=== PATIENT | female | born 1950 | race Caucasian/White ===

== ENCOUNTER 2017-03-14 02:51 | Inpatient (IN) ==
--- NOTE | 2017-02-28 12:56 | EKG Report ---
Test Performed on : 02/28/2017 12:39:31 PM Test Reason : PAT Blood Pressure : / mmHG Vent. Rate : 073 BPM Atrial Rate : 073 BPM P-R Int : 168 ms QRS Dur : 076 ms QT Int : 404 ms P-R-T Axes : 049 018 043 degrees QTc Int : 445 ms Normal sinus rhythm. Possible Left atrial enlargement Low voltage QRS Borderline ECG When compared with ECG of 12-MAR-2013 10:17, No significant change was found Confirmed by Jeremias Bertrand MD ([id number]) on 03/01/2017 7:03:21 AM
[2017-02-28 13:08] LABS: MANUAL DIFF NEEDED? NO
[2017-02-28 13:08] LABS: URINE MICRO REVIEW NEEDED? NO; URINE SOURCE CLEAN CATCH
[2017-02-28 13:20] LABS: BASO% 0.4 % (0.0-0.8); EOS# 0.12 X1000 (0.0-0.7); EOS% 1.6 % (0.0-10.0); HEMATOCRIT 42.1 % (37.0-47.0); IMM GRAN# 0.02 X1000 (0.0-0.04); IMM GRAN% 0.3 % (0.0-0.5); LYMPH# 2.23 X1000 (1.2-3.4); MCH 30.6 PG (27-31); MCHC 33.3 g/dL (33-37); MCV 91.9 FL (81-99); MONO# 0.49 X1000 (0.11-0.59); MONO% 6.6 % (1.7-9.3); MPV 10.7 FL (7.4-10.4); NEUT% 61.1 % (42.2-75.2); PLT 268 X1000 (130-400); RBC 4.58 XMIL (4.2-5.4)
[2017-02-28 13:31] LABS: INR 1.06; PROTIME 11.2 Seconds (9.2-11.7); PTT 26.4 Seconds (22.0-36.0)
[2017-02-28 13:39] LABS: BILIRUBIN URINE NEGATIVE (NEGATIVE); BLOOD URINE NEGATIVE (NEGATIVE); COLOR STRAW; GLUCOSE URINE NEGATIVE (NEGATIVE); LEUKOCYTES URINE NEGATIVE (NEGATIVE); NITRITE URINE NEGATIVE (NEGATIVE); PROTEIN URINE NEGATIVE (NEGATIVE); SP GRAVITY URINE 1.008; TURBIDITY URINE CLEAR (CLEAR); UROBILINOGEN URINE NORMAL (NORMAL)
[2017-02-28 13:43] LABS: UR EPITHELIAL CELLS <10 /HPF (<10); URINE BACTERIA NEGATIVE /HPF; URINE RBC <10 /HPF (<10); URINE WBC <10 /HPF (<10)
[2017-02-28 14:00] LABS: AGAP 13; BUN 16 mg/dL (8-22); CALCIUM 9.2 mg/dL (8.8-10.2); CHLORIDE 101 mmol/L (98-107); COSMO 284; POTASSIUM 3.8 mmol/L (3.5-5.1); SODIUM 142 mmol/L (136-145); TCO2 28 mmol/L (25-35)
[2017-03-14] MEDS ORDERED: LR 1,000 ML ONE ×2 (09:05→13:54)
[2017-03-14] MEDS ORDERED: NAROPIN 0.5% ONE (09:05)
[2017-03-14] MEDS ORDERED: COLACE ONE (09:12)
[2017-03-14] MEDS ORDERED: KEFZOL 2 GM/D5W 2 GM/50 ML IVPB ONE (09:12)
[2017-03-14] MEDS ORDERED: CELEBREX ONE (09:12)
[2017-03-14] MEDS ORDERED: REGLAN ONE (09:12)
[2017-03-14] MEDS ORDERED: LYRICA ONE (09:12)
[2017-03-14] MEDS ORDERED: PEPCID ONE (09:12)
[2017-03-14] MEDS ORDERED: VERSED ONE (10:01)
[2017-03-14] MEDS ORDERED: TORADOL ONE (10:35)
[2017-03-14] MEDS ORDERED: EXPAREL 1.3% ONE (10:36)
[2017-03-14] MEDS ORDERED: CYKLOKAPRON 1,000 MG/NS 1,000 MG/100 ML IVPB ONE (10:36)
[2017-03-14] MEDS ORDERED: NEOSPORIN G.U. IRRIGANT ONE (10:36)
[2017-03-14] MEDS ORDERED: SODIUM CHLORIDE 0.9% ONE (10:36)
[2017-03-14] MEDS ORDERED: MARCAINE 0.25% PF/EPI 1:200,000 ONE (10:37)
[2017-03-14 11:44] LABS: URINE MICRO REVIEW NEEDED? NO; URINE SOURCE CATH
[2017-03-14 11:50] LABS: BILIRUBIN URINE NEGATIVE (NEGATIVE); BLOOD URINE NEGATIVE (NEGATIVE); COLOR YELLOW; GLUCOSE URINE NEGATIVE (NEGATIVE); LEUKOCYTES URINE NEGATIVE (NEGATIVE); NITRITE URINE NEGATIVE (NEGATIVE); PH URINE 6.5; PROTEIN URINE NEGATIVE (NEGATIVE); SP GRAVITY URINE 1.018; TURBIDITY URINE CLEAR (CLEAR); UR EPITHELIAL CELLS <10 /HPF (<10); URINE BACTERIA NEGATIVE /HPF; URINE RBC <10 /HPF (<10); URINE WBC <10 /HPF (<10); UROBILINOGEN URINE NORMAL (NORMAL)
[2017-03-14] MEDS ORDERED: VANCOMYCIN ONE (12:10)
[2017-03-14] MEDS ORDERED: FENTANYL ONE (12:36)
[2017-03-14] MEDS ORDERED: DIPRIVAN 1% ONE (12:36)
[2017-03-14] MEDS ORDERED: ROBINUL ONE (13:53)
[2017-03-14] MEDS ORDERED: NEOSTIGMINE ONE (13:53)
[2017-03-14] MEDS ORDERED: ZOFRAN ONE (13:53)
[2017-03-14] MEDS ORDERED: NORCURON ONE (13:53)
[2017-03-14] MEDS ORDERED: XYLOCAINE 2% JELLY ONE (13:53)
[2017-03-14] MEDS ORDERED: QUELICIN (DOSE) ONE (13:54)
[2017-03-14] MEDS ORDERED: DECADRON ONE (13:54)
[2017-03-14] MEDS ORDERED: XYLOCAINE-MPF 2% ONE (13:54)
[2017-03-14] MEDS ORDERED: OFIRMEV 1000 MG/ISOTONIC SOLN 1,000 MG/100 ML BOTTLE ONE (13:54)
--- NOTE | 2017-03-14 13:58 | OPERATIVE NOTE ---
PROCEDURE DATE: 03/14/2017 PREOPERATIVE DIAGNOSIS: Left degenerative glenohumeral arthritis and glenohumeral arthritis. POSTOPERATIVE DIAGNOSIS: Left degenerative glenohumeral arthritis and glenohumeral arthritis. PROCEDURE PERFORMED: Left total shoulder arthroplasty with DePuy size 8 Global Unite press-fit stem with Porocoat; 142 degree anatomic proximal body with Porocoat, size 6/8; size 40 x 18 mm eccentric humeral head; 40 mm anchor peg glenoid. SURGEON: Carloz Loera MD 1ST FIRE LOSS PREVENTION ENGINEER: RACHNA Hernandez 2ND FIRE LOSS PREVENTION ENGINEER: Fili Gonzalez, medical student. ANESTHESIA: General. IV FLUID: 1700 mL of lactated Ringer's. ESTIMATED BLOOD LOSS: 300 mL. COMPLICATIONS: None. INDICATIONS: The patient is a pleasant 66-year-old female with a chronic history of worsening pain and discomfort in the left shoulder. Radiographic studies revealed significant degenerative glenohumeral arthritis. The recommendation was to proceed with arthroplasty of the left shoulder. The risks and benefits of surgery were explained, including the risks of anesthesia, , bleeding, infection, failure to relieve pain, postoperative stiffness, nerve injury, blood clots, and other imponderables. All questions were answered. The patient and family wished to proceed with surgery. DETAILS OF OPERATION: The patient was taken to the operating room and placed supine on the operating table. Once adequate anesthesia was obtained, the patient was placed in semi-Braxton beach-chair position. The left shoulder was subsequently prepped and draped in usual sterile fashion. A standard deltopectoral incision was made with a skin knife. Hemostasis was obtained using electrocautery. The deltopectoral interval was then developed and the cephalic vein was identified and retracted with the deltoid. Barnes retractors were then placed. The clavipectoral fascia was then elevated as was the conjoined tendon and a Barnes retractor was placed deep to this. After this had been performed, attention was then turned to the subscapularis tendon. Approximately 1 cm lateral to the insertion, a longitudinal incision was made after a stay suture had been placed in the medial aspect of the tendon. After this had been performed, the rotator cuff interval was incised as well. The head was then dislocated anteriorly. with the arm held parallel to the floor, the patient was noted to have an intact rotator cuff. A modified Crego retractor was then placed superiorly and, with the arm held parallel to the floor and externally rotated approximately 25 degrees, a template was placed on proximal humerus and cautery was used to anjel the site of the resection. A saw was then used to resect the humeral head. A protective disk was then placed. Attention was then turned to the glenoid. Circumferential dissection was then performed around the graft glenoid and release of the biceps tendon was performed as well. A retractor was then placed. Using the guide, a guidepin was then placed in position. Reaming was then conducted. After this had been performed, a central hole was then dilated Irrigation was then performed. An anchor peg guide was then placed in position and the superior and 2 inferior peg holes were then drilled. After this had been performed, a trial size 40 glenoid had excellent fit. This was then removed. Copious irrigation was then performed once again with antibiotic pulsatile lavage while vancomycin was mixed with cement on the back table. Cement was then placed in the 3 peripheral peg holes. The anchor peg glenoid was somewhat difficult to insert and the cement holes had hardened too quickly. Therefore, the anchor peg guide was placed back into position and the 3 peripheral holes were drilled once again and a trial stem was then placed. A new bag of cement was then placed and antibiotic pulsatile lavage was performed. Antibiotic pulsatile lavage was performed while the vancomycin was mixed with the cement on the back table. After this had been performed, autologous bone graft was placed in central fenestrated holes of the anchor peg glenoid. The cement was then placed in 3 peripheral holes. The size 40 anchor peg glenoid was then impacted in position and had an excellent fit. Axial loading was maintained while the cement cured. After this had been performed, attention was then turned to the proximal humerus, where reaming was then conducted. A size 8 had good purchase. The proximal broach was then placed in position and had good fit. After this had been performed, the 142 degree proximal body appeared to have excellent fit on the humerus. After this had been performed, this was then removed. The size 8 press-fit stem, with Porocoat and the 142 degree proximal body was assembled on the back table. Copious irrigation was performed of the intramedullary canal. The Global Unite size 8 humeral stem was then impacted into the proximal humerus. It had good fit. A trial head was then placed. The 42, +18 humeral head had excellent stability, soft tissue balance, and range of motion. This was then removed. The wound was copiously irrigated once again with antibiotic pulsatile lavage. A size 40 x 18 eccentric humeral head was then placed with the eccentricity placed posteriorly. The shoulder was reduced and then carried through range of motion. It had excellent stability in range of motion. The wound was copiously irrigated once again. Exparel was placed in the deep soft tissue as well as subcutaneous tissue. A #2 FiberWire was then used to repair the subscapularis tendon and the rotator cuff interval. The shoulder was carried through range of motion and had good repair. The wound was copiously once again. This was followed by 2-0 Vicryl to repair the subcutaneous tissue, followed by running 2-0 Prolene. Benzoin and Steri-Strips were applied. Adaptic, sterile 4 x 4's, ABD pad, and tape were applied to the right shoulder, followed by a shoulder immobilizer. All counts were correct. The patient tolerated the procedure well and was transferred to the recovery room in stable condition. cc: Carloz Loera MD
[2017-03-14] MEDS ORDERED: NS 1,000 ML ONE (13:59)
--- NOTE | 2017-03-14 14:05 | Diag Imaging Result Doc PS360 ---
EXAM: SHOULDER 1 VIEW LEFT HISTORY: post op TECHNIQUE: Portable AP only COMMENT: There is a humeral head prosthesis. No previous radiographs are available for comparison. Some soft tissue gas is seen medially. There may be some bony fragments inferior to the prosthetic humeral head. IMPRESSION: Postsurgical changes. Electronically signed by Alhaji Navarro 03/14/2017 2:03 PM
[2017-03-14] MEDS: ASPIRIN PO SCH (15:14)
[2017-03-14] MEDS: MOBIC PO SCH (15:14)
[2017-03-14] MEDS: FLONASE NAS SCH (15:14)
[2017-03-14] MEDS: GLUCOSAMINE 500 MG/CHONDROITIN 400 MG PO SCH (15:14)
[2017-03-14] MEDS ORDERED: MORPHINE IV PRN (15:27)
[2017-03-14] MEDS ORDERED: MILK OF MAGNESIA PO PRN (15:27)
[2017-03-14] MEDS ORDERED: ZOFRAN PO PRN (15:27)
[2017-03-14] MEDS: ZYLOPRIM PO SCH (15:52)
[2017-03-14] MEDS: HYDROCHLOROTHIAZIDE PO SCH (15:52)
[2017-03-14] MEDS: COZAAR PO SCH (15:53)
[2017-03-14] MEDS: NS 1,000 ML IV SCH (16:57)
[2017-03-14] MEDS ORDERED: CYKLOKAPRON 1,000 MG in NS 100 ML IV ONE (17:00)
[2017-03-14] MEDS: KEFZOL 2 GM/D5W 2 GM/50 ML IVPB IV SCH (18:40)
[2017-03-14] MEDS: TYLENOL PO SCH (18:40)
[2017-03-14] MEDS: COLACE PO SCH (21:30)
[2017-03-14] MEDS: PERIDEX MT SCH (21:30)
[2017-03-15] MEDS: TYLENOL PO SCH ×2 (02:32→09:02)
[2017-03-15] MEDS: KEFZOL 2 GM/D5W 2 GM/50 ML IVPB IV SCH (02:32)
[2017-03-15 05:32] LABS: HEMATOCRIT 33.2 % (37.0-47.0); HEMOGLOBIN 11.2 g/dL (12.0-16.0)
[2017-03-15 06:07] LABS: AGAP 18; BUN 9 mg/dL (8-22); CALCIUM 8.2 mg/dL (8.8-10.2); CHLORIDE 97 mmol/L (98-107); COSMO 269; SODIUM 134 mmol/L (136-145); TCO2 19 mmol/L (25-35)
[2017-03-15] MEDS: NS 1,000 ML IV SCH (06:10)
--- NOTE | 2017-03-15 06:51 | PROGRESS NOTE ---
DATE: 03/15/2017 SUBJECTIVE: The patient is a pleasant 66-year-old female who is one day status post left total shoulder arthroplasty. She is currently resting comfortably. She has no complaints. OBJECTIVE: The patient's left upper extremity shows her dressing is intact. She is neurovascularly intact throughout. Good email manager strength. LABORATORY DATA: Hemoglobin is 11.2 and hematocrit 33.2. IMPRESSION: Postop day #1 status post left total shoulder arthroplasty. PLAN: At this point, we will change her dressing. We have her mobilize physical therapy and also Hep-Lock her IV. Discontinue her [place]. Plan on discharging home today. Patient will proceed with outpatient physical therapy. cc: Carloz Loera MD
[2017-03-15] MEDS ORDERED: PEPCID PO SCH (09:00)
[2017-03-15] MEDS: GLUCOSAMINE 500 MG/CHONDROITIN 400 MG PO SCH (09:01)
[2017-03-15] MEDS: COLACE PO SCH (09:02)
[2017-03-15] MEDS: ASPIRIN PO SCH (09:02)
[2017-03-15] MEDS: PERIDEX MT SCH (09:02)
[2017-03-15] MEDS: HYDROCHLOROTHIAZIDE PO SCH (09:02)
[2017-03-15] MEDS: MOBIC PO SCH (09:02)
[2017-03-15] MEDS: ZYLOPRIM PO SCH (09:02)
[2017-03-15] MEDS: OXY IR PO PRN ×3 (09:03→14:18)
[2017-03-15] MEDS: COZAAR PO SCH (09:03)
[2017-03-15] MEDS: FLONASE NAS SCH (09:06)
[2017-03-15 11:22] VITALS: BP 110/73
== END 2017-03-15 15:10 | disposition home or self-care (01) ==
LOC: SURHOLD 02:51 → 4N 11:38
PROVIDERS: ADMIT Orthopaedic Surgery Adult Reconstructive Orthopaedic Surgery; ATTEND Orthopaedic Surgery Adult Reconstructive Orthopaedic Surgery